=== PATIENT | female | born 1930 | race Caucasian/White ===

== ENCOUNTER 2017-07-13 13:51 | Outpatient (CLI) | payer MEDICARE | END 2017-07-13 13:52 | disposition home or self-care (01) | LOC: BICMAMMO 13:51 | PROVIDERS: ATTEND Obstetrics & Gynecology | DX: Z12.31 Encounter for screening mammogram for malignant neoplasm of breast (principal); Z85.3 Personal history of malignant neoplasm of breast; Z80.3 Family history of malignant neoplasm of breast | CPT/HCPCS: 77063; 77067 ==